=== PATIENT | female | born 1960 | race Caucasian/White ===

== ENCOUNTER → 2017-07-20 | Emergency (ER) | payer OTHER ==
[2017-07-20] MEDS: LIDOCAINE/MYLANTA 40 ML BTL PO (22:51)
== END | disposition home or self-care (01) ==
LOC: E/R 19:36
DX: K29.50 Unspecified chronic gastritis without bleeding (principal); K21.9 Gastro-esophageal reflux disease without esophagitis
CPT/HCPCS: 93005; 99284-25